=== PATIENT | female | born 1955 | race Caucasian/White ===

== ENCOUNTER → 2023-03-22 09:14 | Outpatient (REF) | payer MEDICARE, OTHER, SELFPAY | LOC: WDC 09:14 | PROVIDERS: ATTENDING PHYSICIAN Nurse Practitioner Primary Care; FAMILY PHYSICIAN Internal Medicine | DX: N63.32 Unspecified lump in axillary tail of the left breast (principal); R22.32 Localized swelling, mass and lump, left upper limb | CPT/HCPCS: 76642; 77062; 77066 ==

== ENCOUNTER → 2023-06-30 14:00 | Outpatient (REF) | payer MEDICARE, OTHER, SELFPAY | LOC: WDC 14:00 | PROVIDERS: ATTENDING PHYSICIAN Nurse Practitioner Family | DX: R22.31 Localized swelling, mass and lump, right upper limb (principal); N63.31 Unspecified lump in axillary tail of the right breast | CPT/HCPCS: 76642 ==

== ENCOUNTER → 2024-02-03 08:17 | Outpatient (REF) | payer MEDICARE, OTHER, SELFPAY ==
--- NOTE | 2024-02-03 16:15 | OID.BR.INTR ---
[facility] Breast Navigator - Initial
- -
Date of Contact: 02/03/24
Met with patient. Patient given written information on navigator services available at [facility]. Will follow up as needed per protocol.
== END ==
LOC: WDC 08:17
PROVIDERS: ATTENDING PHYSICIAN Nurse Practitioner Primary Care
DX: N63.13 Unspecified lump in the right breast, lower outer quadrant (principal)
CPT/HCPCS: 88305; 19083; 76642; A4648

== ENCOUNTER → 2024-02-17 10:16 | Outpatient (REF) | payer MEDICARE, OTHER, SELFPAY | LOC: WDC 10:16 | PROVIDERS: ATTENDING PHYSICIAN Surgery; FAMILY PHYSICIAN Internal Medicine | DX: N64.4 Mastodynia (principal); C50.411 Malignant neoplasm of upper-outer quadrant of right female breast | CPT/HCPCS: 76642; 77062; 77066 ==

== ENCOUNTER → 2024-03-08 08:32 | Outpatient (REF) | payer MEDICARE, OTHER, SELFPAY | LOC: WDC 08:32 | PROVIDERS: ATTENDING PHYSICIAN Surgery | DX: C50.411 Malignant neoplasm of upper-outer quadrant of right female breast (principal) | CPT/HCPCS: 19285; 38792; 76942; A4648; A9541 ==

== ENCOUNTER 2024-03-09 06:24 | Day surgery (SDC) | payer MEDICARE, OTHER, SELFPAY ==
[2024-02-24 13:24] VITALS: BMI 26.7
[2024-03-09] VITALS (10 sets, daily range): BP systolic 130–153; BP diastolic 76–82; BMI 26.7
[2024-03-09] MEDS: TYLENOL 1000 MG PO (08:34)
[2024-03-09] MEDS: LOVENOX 40 MG SC (08:34)
--- NOTE | 2024-03-09 10:32 | W.IMMPOSTOP ---
Surgical Immed Post Op Note
-
Primary Surgeon: Danny
Assisting Surgeon: None
Pre-op Diagnosis: Right breast ca
Post-op Diagnosis: Same
Procedure Performed: Right localized lumpectomy, sentinel node mapping and biopsy, oncoplastic mastoplasty
Anesthesia Type: LMA with TIVA
Specimen / Cultures: Right lumpectomy, margins, sentinel nodes
Estimated Blood Loss: 6cc
Complications: None
Operative Findings: Neg nodes; mass, clip and reflector in specimen
--- NOTE | 2024-03-09 10:34 | OR.RPT ---
Operative Report
Operative Report
Pre-Op DX: Right breast ca
Post-Op DX: Right breast ca
Surgeon: Danny
Procedure: Right localized lumpectomy, sentinel node mapping and biopsy and oncoplastic mastoplasty
The patient is a 68-year-old female with image-detected right breast carcinoma who presents for breast conservation surgery. On the day prior to the procedure. she presented to the breast center where a Vandana brush finisher reflector was placed at the tumor
site and technetium radiotracer was injected into the breast parenchyma. On the day of her procedure she presented to same-day surgical unit and was prepped. DVT and antibiotic prophylaxis were delivered. She was taken to the operating room and
in the supine position LMA anesthesia with TIVA was induced. The right breast and axilla were prepped and draped in usual sterile fashion. An appropriate timeout procedure was performed.
All tissues were anesthetized with 1% lidocaine plain. Attention was first turned to the axilla and a curvilinear incision was made inferior to the hairline overlying the area of highest external gamma count. Dissection was carried through
clavipectoral fascia and using the neoprobe gamma probe, 3 sentinel node packets were removed and sent for analysis. Feeding vessels to these nodes were controlled with 3-0 silk tie. Frozen section analysis on the nose was negative. Hemostasis
was verified. Marcaine 0.5% plain was instilled and the wound was closed using simple interrupted 3-0 plain on deep intermediate and subcutaneous tissue and skin was closed with a running subcuticular 4 Monocryl.
Then attention was turned to the lumpectomy where a curvilinear incision was made overlying the area of highest external Vandana signal. Skin flaps were elevated with the cautery and a wide lumpectomy was performed with the cautery. Time out of body
was noted and the specimen was oriented for the pathologist. Specimen radiography confirmed the presence of mass, clip, and reflector within it. Additional margins were harvested for permanent analysis from the posterior, medial, superior,
lateral, inferior, and anterior dimensions. These were oriented as well. This left a resulting defect of 6 x 4 cm therefore in an oncoplastic fashion a separate parenchymal incision was made to advance the tissue flap to close the defect.
Hemoclips were placed in the resection cavity after hemostasis was verified and Marcaine 0.5% plain was instilled into the tissue. Wound was closed using simple interrupted 3-0 plain on deep and intermediate tissue and skin was closed using simple
interrupted 3-0 Vicryl on subcutaneous tissue and a running subcuticular 4-0 Monocryl. Surgical glue and a sterile compressive dressing were applied. All sponge needle and instrument counts were correct and the patient was transferred to the
recovery room in stable condition.
([id number])
Hornbeak Node Bx Breast Cancer
Hornbeak Node Bx Breast Cancer
Operation performed with curative intent: Yes
Tracer(s) to ID Hornbeak Nodes in Non-Neoadjuvant setting: Radioactive Tracer
Tracer(s) to ID Sentinal Nodes in the Neoadjuvant Setting: N/A
All nodes at end of dye-filled Lymphatic Channel removed: N/A
All Significantly Radioactive Nodes were removed: Yes
All Palpably Suspicious Nodes were Removed: Yes
Bx Proven Pos Nodes Marked Prior to Chemo ID'd & Removed: N/A
[2024-03-09] MEDS: MOTRIN 600 MG PO (12:03)
== END 2024-03-09 12:45 | disposition home or self-care (01) ==
LOC: SDS 06:24
PROVIDERS: ATTENDING PHYSICIAN Surgery; FAMILY PHYSICIAN Internal Medicine
DX: C50.411 Malignant neoplasm of upper-outer quadrant of right female breast (principal); Z17.0 Estrogen receptor positive status [ER+]
CPT/HCPCS: 38525; 19301; 88305; 88307; 88332; 76098; 88331; 88342; A4648

== ENCOUNTER → 2024-10-03 14:02 | Outpatient (REF) | payer MEDICARE, OTHER, SELFPAY | LOC: RAD 14:02 | PROVIDERS: ATTENDING PHYSICIAN Internal Medicine Hematology & Oncology; FAMILY PHYSICIAN Internal Medicine | DX: C50.411 Malignant neoplasm of upper-outer quadrant of right female breast (principal); Z78.0 Asymptomatic menopausal state | CPT/HCPCS: 77080 ==

== ENCOUNTER → 2025-01-31 14:12 | Outpatient (REF) | payer MEDICARE, OTHER, SELFPAY | LOC: WDC 14:12 | PROVIDERS: ATTENDING PHYSICIAN Nurse Practitioner Adult Health; FAMILY PHYSICIAN Internal Medicine | DX: Z12.31 Encounter for screening mammogram for malignant neoplasm of breast (principal) | CPT/HCPCS: 77063; 77067 ==